=== PATIENT | female | born 1970 | race Hispanic/Latino ===

== ENCOUNTER 2017-10-02 14:27 | Inpatient (IN) | payer SELFPAY ==
[~2017-10-02] VITALS: Ht 154.9 cm; Wt 96.3 kg
[2017-10-02 15:23] LABS: BASOPHILS % (AUTO) 0.7 % (0.0-5.0); HEMATOCRIT 30.6 % (36-48); LYMPHOCYTES % (AUTO) 6.2 % (21.0-51.0); MEAN CORPUSCULAR HGB CONC 30.8 g/dL (32.0-36.0); MEAN CORPUSCULAR VOLUME 71.4 fL (79-99); MONOCYTES % (AUTO) 11.4 % (3.0-13.0); NEUTROPHILS % (AUTO) 81.7 % (40.0-77.0); NUCLEATED RED BLOOD CELLS 0.1 % (0.0-0.19); PLATELET COUNT (AUTO) 472 K/uL (130-400); RED BLOOD CELL COUNT(AUTO) 4.28 MIL/uL (4.00-5.50); RED CELL DISTRIBUTION WIDTH 17.1 % (11.0-15.5); WHITE BLOOD COUNT (AUTO) 17.3 K/uL (4.8-10.8)
[2017-10-02] MEDS ORDERED: ONDANSETRON HCL 4 MG/2 ML VIAL ONE (15:36)
[2017-10-02 15:50] LABS: ALANINE AMINOTRANSFERASE 20 U/L (12-78); ALBUMIN 2.4 g/dL (3.5-5.0); ASPARTATE AMINOTRANSFERASE 16 U/L (10-37); BILIRUBIN,TOTAL 0.4 mg/dL (0.2-1.0); CARBON DIOXIDE 27 mmol/L (21-32); CHLORIDE 92 mmol/L (101-111); CREATINE KINASE MB < 0.5 ng/mL (0.5-3.6); CREATINE KINASE, TOTAL 146 U/L (21-232); CREATININE 0.8 mg/dL (0.5-1.5); GLOMERULAR FILTR. RATE CALC 81 mL/min (>60); GLUCOSE,RANDOM 284 mg/dL (70-105); SODIUM SERUM 131 mmol/L (136-145); TOTAL PROTEIN, SERUM 8.7 g/dL (6.0-8.3); UREA NITROGEN, BLOOD 10 mg/dL (7-18)
[2017-10-02 15:52] LABS: POTASSIUM 2.6 mmol/L (3.5-5.1)
[2017-10-02] MEDS ORDERED: IPRATROPIUM/ALBUTEROL SULFATE 3 ML SOLUTION IH ONE (16:00)
[2017-10-02 16:02] LABS: INR 1.08 (0.85-1.15); PARTIAL THROMBOPLASTIN TIME 31.5 SEC (26.3-35.5); PROTHROMBIN TIME 11.3 SEC (9.6-11.6)
[2017-10-02] MEDS ORDERED: POTASSIUM BICARB/CIT AC 25 MEQ TABLET.EFF ONE ×2 (16:11→21:10)
[2017-10-02] MEDS ORDERED: CEFTRIAXONE SODIUM 1 GM ONE (16:47)
[2017-10-02] MEDS ORDERED: AZITHROMYCIN 500MG+NS 250ML 250 ML IV ONE (16:47)
[2017-10-02 16:53] LABS: APPEARANCE,URINE Turbid (CLEAR); BILIRUBIN,URINE Negative (NEGATIVE); COLOR,URINE Orange (YELLOW); GLUCOSE, URINE (UA) >=1000 mg/dL (NEGATIVE); KETONES,URINE >=160 mg/dL (NEGATIVE); LEUKOCYTE ESTERASE ,URINE Moderate (NEGATIVE); NITRATE,URINE Negative (NEGATIVE); OCCULT BLOOD,URINE Large (NEGATIVE); PROTEIN,URINE >=1000 (NEGATIVE)
[2017-10-02 16:55] LABS: HCG,QUAL RESULT NEGATIVE (NEGATIVE)
[2017-10-02 17:00] LABS: RBC,URINE 51-100 /HPF (0-1)
[2017-10-02 17:01] LABS: BACTERIA,URINE Rare /HPF (None Seen)
[2017-10-02] MEDS ORDERED: ACETAMINOPHEN 325 MG TAB ONE (18:14)
[2017-10-02] MEDS ORDERED: INSULIN HUMULIN R 100 UNIT/ML 3ML ONE (21:11)
[2017-10-02 21:30] VITALS: BP 163/95
[2017-10-02 23:00] VITALS: BP 178/99
[2017-10-02] MEDS: SODIUM CHLORIDE 0.9% 1000ML 1,000 ML IV SCH (23:10)
[2017-10-03] MEDS ORDERED: ACETAMINOPHEN 325 MG TAB ONE (01:30)
[2017-10-03] MEDS ORDERED: ONDANSETRON HCL 4 MG/2 ML VIAL IV PRN (02:30)
[2017-10-03] MEDS: CEFTRIAXONE 1GM/D5W 50ML 50 ML IV SCH (02:30)
[2017-10-03] MEDS: METHYLPREDNISOLONE SOD SUCC 125MG/2ML VIAL IV SCH (02:30)
[2017-10-03] MEDS ORDERED: POTASSIUM CHLORIDE 10% ELIXIR 20 MEQ/15 ML UDCUP PO PRN (02:30)
[2017-10-03] MEDS: AZITHROMYCIN 500MG+NS 250ML 250 ML IV SCH (02:30)
[2017-10-03] MEDS ORDERED: ACETAMINOPHEN-CODEINE 300/30MG TAB PO PRN (02:30)
[2017-10-03] MEDS ORDERED: HYDRALAZINE HCL 20 MG/ML VIAL ONE (02:43)
[2017-10-03 03:00] VITALS: BP 177/96
[2017-10-03] MEDS ORDERED: IPRATROPIUM/ALBUTEROL SULFATE 3 ML SOLUTION IH ONE (03:24)
[2017-10-03] MEDS ORDERED: METHYLPREDNISOLONE SOD SUCC 125MG/2ML VIAL ONE (03:25)
[2017-10-03] MEDS: INSULIN LISPRO 100 UNIT/ML 3ML SQ SCH ×4 (06:23→20:57)
[2017-10-03] MEDS: SODIUM CHLORIDE 0.9% 1000ML 1,000 ML IV SCH ×2 (06:26→15:11)
[2017-10-03] MEDS: IPRATROPIUM/ALBUTEROL SULFATE 3 ML SOLUTION IH SCH ×5 (06:32→22:29)
[2017-10-03 07:00] VITALS: BP 164/88
[2017-10-03] MEDS: PANTOPRAZOLE SODIUM 40 MG TABLET.DR PO SCH (10:12)
[2017-10-03] MEDS: BENZONATATE 100 MG CAPSULE PO SCH ×3 (10:12→20:44)
[2017-10-03] MEDS: LIDOCAINE HCL-MPF 1% 2ML VIAL IVP PRN ×3 (10:13→17:01)
[2017-10-03] MEDS: POTASSIUM CHLORIDE 20MEQ/100ML 100 ML IV PRN ×3 (10:13→17:00)
[2017-10-03 12:00] VITALS: BP 172/92
[2017-10-03] MEDS: HYDRALAZINE HCL 20 MG/ML VIAL IV PRN (12:11)
[2017-10-03 16:00] VITALS: BP 151/84
[2017-10-03 19:00] VITALS: BP 143/96
[2017-10-03] MEDS ORDERED: AMLO10TA2 PO (19:43)
[2017-10-03] MEDS ORDERED: PRAV20TA4 PO (19:43)
[2017-10-03] MEDS ORDERED: GLIM1TAB2 PO (19:43)
[2017-10-03] MEDS ORDERED: LOSA25TA21 PO (19:43)
[2017-10-03] MEDS ORDERED: METF-526 PO (19:43)
[2017-10-03] MEDS ORDERED: AEC81 PO (19:43)
[2017-10-03 23:00] VITALS: BP 159/90
[2017-10-04] MEDS ORDERED: CEFTRIAXONE SODIUM 1 GM ONE (01:20)
[2017-10-04] MEDS: AZITHROMYCIN 500MG+NS 250ML 250 ML IV SCH (01:34)
[2017-10-04] MEDS: CEFTRIAXONE 1GM/D5W 50ML 50 ML IV SCH (01:35)
[2017-10-04] MEDS: METHYLPREDNISOLONE SOD SUCC 125MG/2ML VIAL IV SCH (01:43)
[2017-10-04] MEDS: IPRATROPIUM/ALBUTEROL SULFATE 3 ML SOLUTION IH SCH ×6 (02:26→22:01)
[2017-10-04] MEDS: ACETAMINOPHEN 325 MG TAB PO PRN (02:33)
[2017-10-04 03:00] VITALS: BP 159/97
[2017-10-04] MEDS: SODIUM CHLORIDE 0.9% 1000ML 1,000 ML IV SCH (04:15)
[2017-10-04] MEDS: HYDRALAZINE HCL 20 MG/ML VIAL IV PRN ×2 (04:23→19:26)
[2017-10-04 06:17] LABS: BASOPHILS % (AUTO) 0.2 % (0.0-5.0); HEMATOCRIT 25.3 % (36-48); LYMPHOCYTES % (AUTO) 10.3 % (21.0-51.0); MEAN CORPUSCULAR HEMOGLOBIN 21.8 pg (27.0-33.0); MEAN CORPUSCULAR HGB CONC 30.3 g/dL (32.0-36.0); MEAN CORPUSCULAR VOLUME 71.9 fL (79-99); MONOCYTES % (AUTO) 6.9 % (3.0-13.0); NEUTROPHILS % (AUTO) 82.6 % (40.0-77.0); NUCLEATED RED BLOOD CELLS 0.1 % (0.0-0.19); PLATELET COUNT (AUTO) 500 K/uL (130-400); RED BLOOD CELL COUNT(AUTO) 3.52 MIL/uL (4.00-5.50); RED CELL DISTRIBUTION WIDTH 17.2 % (11.0-15.5); WHITE BLOOD COUNT (AUTO) 19.2 K/uL (4.8-10.8)
[2017-10-04] MEDS: INSULIN LISPRO 100 UNIT/ML 3ML SQ SCH ×4 (06:18→21:05)
[2017-10-04 06:37] LABS: CREATININE 0.6 mg/dL (0.5-1.5); POTASSIUM 3.1 mmol/L (3.5-5.1)
[2017-10-04] MEDS: POTASSIUM CHLORIDE 20MEQ/100ML 100 ML IV PRN (07:02)
[2017-10-04] MEDS: LIDOCAINE HCL-MPF 1% 2ML VIAL IVP PRN (07:02)
[2017-10-04] MEDS: POTASSIUM CHLORIDE 20 MEQ ERTAB PO PRN ×3 (07:03→21:10)
[2017-10-04 08:00] VITALS: BP 138/76
[2017-10-04] MEDS: BENZONATATE 100 MG CAPSULE PO SCH ×3 (09:13→21:11)
[2017-10-04] MEDS: PANTOPRAZOLE SODIUM 40 MG TABLET.DR PO SCH (09:13)
[2017-10-04 11:00] VITALS: BP 156/89
[2017-10-04 16:00] VITALS: BP 161/83
[2017-10-04] MEDS: METHYLPREDNISOLONE SOD SUCC 40MG/ML 1ML IVP SCH (17:16)
[2017-10-04 20:32] LABS: CREATINE KINASE MB 1.5 ng/mL (0.5-3.6); CREATINE KINASE, TOTAL 175 U/L (21-232); MYOGLOBIN 39 ng/mL (10-92); TROPONIN I < 0.04 ng/mL (0.00-0.06)
[2017-10-04] MEDS ORDERED: LORAZEPAM 2 MG/ML 1 ML VIAL IVP PRN (20:45)
[2017-10-04] MEDS: METFORMIN HCL 500 MG TABLET PO SCH (21:10)
[2017-10-04] MEDS: ATORVASTATIN CALCIUM 10 MG TABLET PO SCH (21:10)
[2017-10-04] MEDS: GLIMEPIRIDE 2 MG TABLET PO SCH (21:11)
[2017-10-04] MEDS: LOSARTAN 50 MG TABLET PO SCH (21:12)
[2017-10-04 23:00] VITALS: BP 165/100
[2017-10-05] MEDS: IPRATROPIUM/ALBUTEROL SULFATE 3 ML SOLUTION IH SCH ×6 (01:41→22:01)
[2017-10-05] MEDS ORDERED: CEFTRIAXONE SODIUM 1 GM ONE ×2 (02:16→23:27)
[2017-10-05] MEDS: HYDRALAZINE HCL 20 MG/ML VIAL IV PRN ×2 (02:19→23:10)
[2017-10-05] MEDS: METHYLPREDNISOLONE SOD SUCC 40MG/ML 1ML IVP SCH ×3 (02:21→17:31)
[2017-10-05] MEDS: CEFTRIAXONE 1GM/D5W 50ML 50 ML IV SCH (02:22)
[2017-10-05] MEDS: AZITHROMYCIN 500MG+NS 250ML 250 ML IV SCH (02:22)
[2017-10-05 02:30] LABS: CREATINE KINASE MB 1.3 ng/mL (0.5-3.6); CREATINE KINASE, TOTAL 141 U/L (21-232); MYOGLOBIN 52 ng/mL (10-92); TROPONIN I < 0.04 ng/mL (0.00-0.06)
[2017-10-05 03:00] VITALS: BP 139/78
[2017-10-05] MEDS: ACETAMINOPHEN 325 MG TAB PO PRN (05:00)
[2017-10-05] MEDS: INSULIN LISPRO 100 UNIT/ML 3ML SQ SCH ×4 (07:01→20:39)
[2017-10-05 07:50] LABS: CREATINE KINASE, TOTAL 118 U/L (21-232); MYOGLOBIN 33 ng/mL (10-92); TROPONIN I < 0.04 ng/mL (0.00-0.06)
[2017-10-05 08:00] VITALS: BP 151/96
[2017-10-05] MEDS: PANTOPRAZOLE SODIUM 40 MG TABLET.DR PO SCH (10:20)
[2017-10-05] MEDS: BENZONATATE 100 MG CAPSULE PO SCH ×3 (10:20→20:08)
[2017-10-05] MEDS: GLIMEPIRIDE 2 MG TABLET PO SCH ×2 (10:20→20:08)
[2017-10-05] MEDS: LOSARTAN 50 MG TABLET PO SCH ×2 (10:20→20:09)
[2017-10-05] MEDS: METFORMIN HCL 500 MG TABLET PO SCH ×2 (10:20→20:08)
[2017-10-05] MEDS: ASPIRIN 81 MG EC TAB PO SCH (10:20)
[2017-10-05] MEDS: AMLODIPINE BESYLATE 5 MG TAB PO SCH (10:21)
[2017-10-05 11:00] VITALS: BP 144/95
[2017-10-05 16:00] VITALS: BP 146/79
[2017-10-05 19:00] VITALS: BP 160/95
[2017-10-05] MEDS: ATORVASTATIN CALCIUM 10 MG TABLET PO SCH (20:08)
[2017-10-05 23:00] VITALS: BP 149/95
[2017-10-06] MEDS: METHYLPREDNISOLONE SOD SUCC 40MG/ML 1ML IVP SCH ×3 (00:07→18:16)
[2017-10-06] MEDS: IPRATROPIUM/ALBUTEROL SULFATE 3 ML SOLUTION IH SCH ×6 (01:32→22:17)
[2017-10-06] MEDS: AZITHROMYCIN 500MG+NS 250ML 250 ML IV SCH (02:30)
[2017-10-06] MEDS: CEFTRIAXONE 1GM/D5W 50ML 50 ML IV SCH (02:30)
[2017-10-06 03:00] VITALS: BP 138/92
[2017-10-06] MEDS: INSULIN LISPRO 100 UNIT/ML 3ML SQ SCH ×4 (07:29→20:14)
[2017-10-06 07:30] VITALS: BP 154/90
[2017-10-06] MEDS: LOSARTAN 50 MG TABLET PO SCH ×2 (08:48→20:06)
[2017-10-06] MEDS: BENZONATATE 100 MG CAPSULE PO SCH ×3 (08:48→20:07)
[2017-10-06] MEDS: METFORMIN HCL 500 MG TABLET PO SCH ×2 (08:48→20:06)
[2017-10-06] MEDS: ASPIRIN 81 MG EC TAB PO SCH (08:48)
[2017-10-06] MEDS: PANTOPRAZOLE SODIUM 40 MG TABLET.DR PO SCH (08:48)
[2017-10-06] MEDS: AMLODIPINE BESYLATE 5 MG TAB PO SCH (08:48)
[2017-10-06] MEDS: GLIMEPIRIDE 2 MG TABLET PO SCH ×2 (08:48→20:06)
[2017-10-06 11:00] VITALS: BP 146/90
[2017-10-06 12:16] LABS: HEMATOCRIT 26.5 % (36-48); MEAN CORPUSCULAR HEMOGLOBIN 22.1 pg (27.0-33.0); MEAN CORPUSCULAR HGB CONC 30.8 g/dL (32.0-36.0); MEAN CORPUSCULAR VOLUME 71.7 fL (79-99); PLATELET COUNT (AUTO) 618 K/uL (130-400); RED BLOOD CELL COUNT(AUTO) 3.69 MIL/uL (4.00-5.50); RED CELL DISTRIBUTION WIDTH 17.3 % (11.0-15.5); WHITE BLOOD COUNT (AUTO) 18.1 K/uL (4.8-10.8)
[2017-10-06 12:58] LABS: BAND NEUTROPHILS % (MANUAL) 1 % (0-2); LYMPHOCYTES % (MANUAL) 16 % (22-44); MONOCYTES % (MANUAL) 7 % (2-9); SEGMENTED NEUTROPHILS % 76 % (40-70)
[2017-10-06 13:02] LABS: MAN.DIFF COMMENT-IMPRESSION MANUAL DIFFERENTIAL; PLATELET MORPHOLOGY COMMENT INCREASED
[2017-10-06 16:00] VITALS: BP 144/87
[2017-10-06 20:00] VITALS: BP 152/87
[2017-10-06] MEDS: ATORVASTATIN CALCIUM 10 MG TABLET PO SCH (20:06)
[2017-10-07] VITALS: BP 157/95
[2017-10-07] MEDS ORDERED: CEFTRIAXONE SODIUM 1 GM ONE (00:54)
[2017-10-07] MEDS: METHYLPREDNISOLONE SOD SUCC 40MG/ML 1ML IVP SCH ×2 (01:30→11:14)
[2017-10-07] MEDS: HYDRALAZINE HCL 20 MG/ML VIAL IV PRN (01:31)
[2017-10-07] MEDS: AZITHROMYCIN 500MG+NS 250ML 250 ML IV SCH (01:32)
[2017-10-07] MEDS: CEFTRIAXONE 1GM/D5W 50ML 50 ML IV SCH (01:34)
[2017-10-07] MEDS: IPRATROPIUM/ALBUTEROL SULFATE 3 ML SOLUTION IH SCH ×3 (01:42→09:50)
[2017-10-07 04:00] VITALS: BP 147/85
[2017-10-07] MEDS: INSULIN LISPRO 100 UNIT/ML 3ML SQ SCH ×2 (06:54→12:20)
[2017-10-07 08:00] VITALS: BP 152/93
[2017-10-07] MEDS: LOSARTAN 50 MG TABLET PO SCH (09:00)
[2017-10-07] MEDS ORDERED: PRED20TA3 PO (10:34)
[2017-10-07] MEDS ORDERED: ALBU8.5H8 IH (10:34)
[2017-10-07] MEDS ORDERED: CEFD300C3 PO (10:34)
[2017-10-07] MEDS: GLIMEPIRIDE 2 MG TABLET PO SCH (11:13)
[2017-10-07] MEDS: PANTOPRAZOLE SODIUM 40 MG TABLET.DR PO SCH (11:13)
[2017-10-07] MEDS: AMLODIPINE BESYLATE 5 MG TAB PO SCH (11:14)
[2017-10-07] MEDS: ASPIRIN 81 MG EC TAB PO SCH (11:14)
[2017-10-07] MEDS: BENZONATATE 100 MG CAPSULE PO SCH (11:14)
[2017-10-07] MEDS: METFORMIN HCL 500 MG TABLET PO SCH (11:14)
[2017-10-07 12:00] VITALS: BP 150/101
[2017-10-07] MEDS ORDERED: CEFTRIAXONE SODIUM 1 GM IVP SCH (21:00)
== END 2017-10-07 13:30 | disposition home or self-care (01) | DRG 202 ==
LOC: EDH 14:27 → EDHIP 14:28 → OBSVTOIN 14:28 → 3CH 20:28
PROVIDERS: ADMIT Family Medicine; ATTEND Family Medicine
DX: J20.9 Acute bronchitis, unspecified (principal); N39.0 Urinary tract infection, site not specified; E11.65 Type 2 diabetes mellitus with hyperglycemia; E87.8 Other disorders of electrolyte and fluid balance, not elsewhere classified; E87.1 Hypo-osmolality and hyponatremia; Z68.41 Body mass index [BMI] 40.0-44.9, adult; E66.01 Morbid (severe) obesity due to excess calories; E86.0 Dehydration; E87.6 Hypokalemia; I10 Essential (primary) hypertension; D72.829 Elevated white blood cell count, unspecified; E78.5 Hyperlipidemia, unspecified; Z98.891 History of uterine scar from previous surgery; Z28.21 Immunization not carried out because of patient refusal
CPT/HCPCS: 36415; 71045; 80048; 80053; 81001; 81025; 82550; 82553; 82947; 82948; 83605; 83874; 84132; 84484; 84703; 85025; 85610; 85730; 87040; 87088; 87186; 87804; 87880; 93005; 94640; 94664; J0360; J0456; J0696; J1815; J2060; J2405; J2920; J2930; J3480; J3490; J7030

== ENCOUNTER 2019-04-01 23:34 | Emergency (ER) | payer OTHER ==
[~2019-04-01 23:34] MED LIST: AEC81 PO; ALBU8.5H8 IH; AMLO10TA7 PO; CEFD300C3 PO; GLIM1TAB2 PO; LOSA25TA41 PO; METF-526 PO; PRAV20TA4 PO; PRED20TA3 PO
[2019-04-02] MEDS ORDERED: DiphenhydrAMINE HCL 50 MG/ML VIAL ONE (00:09)
[2019-04-02] MEDS ORDERED: DEXAMETHASONE SOD PHOSPHATE 10MG/ML 1ML VIAL ONE (00:09)
[2019-04-02] MEDS ORDERED: PANTOPRAZOLE 40 MG/VIAL IVP ONE (00:32)
[2019-04-02 00:45] LABS: BASOPHILS % (AUTO) 1.9 % (0.0-5.0); EOSINOPHILS % (AUTO) 0.8 % (0.0-8.0); HEMATOCRIT 36.4 % (36-48); LYMPHOCYTES % (AUTO) 20.6 % (21.0-51.0); MEAN CORPUSCULAR HEMOGLOBIN 26.5 pg (27.0-33.0); MEAN CORPUSCULAR HGB CONC 31.7 g/dL (32.0-36.0); MEAN CORPUSCULAR VOLUME 83.7 fL (79-99); NEUTROPHILS % (AUTO) 66.7 % (40.0-77.0); PLATELET COUNT (AUTO) 358 K/uL (130-400); RED BLOOD CELL COUNT(AUTO) 4.35 MIL/uL (4.00-5.50); RED CELL DISTRIBUTION WIDTH 18.5 % (11.0-15.5); WHITE BLOOD COUNT (AUTO) 6.3 K/uL (4.8-10.8)
[2019-04-02 00:54] LABS: CREATININE 0.7 mg/dL (0.5-1.5); POTASSIUM 3.8 mmol/L (3.5-5.1)
[2019-04-02 00:58] LABS: ALBUMIN 3.3 g/dL (3.5-5.0); BILIRUBIN,TOTAL 0.2 mg/dL (0.2-1.0)
== END 2019-04-02 02:13 | disposition home or self-care (01) ==
LOC: EDH 23:34
DX: T78.3XXA Angioneurotic edema, initial encounter (principal); I10 Essential (primary) hypertension; E78.5 Hyperlipidemia, unspecified; E11.9 Type 2 diabetes mellitus without complications; Z98.890 Other specified postprocedural states
CPT/HCPCS: 36415; 80053; 85025; 96374; 96375; 99284; C9113; J1100; J1200

== ENCOUNTER 2019-04-05 17:14 | Emergency (ER) | payer OTHER ==
[2019-04-05] MEDS ORDERED: ONDANSETRON ODT 4 MG TAB ONE (17:41)
[2019-04-05 18:01] LABS: APPEARANCE,URINE CLOUDY (CLEAR); BILIRUBIN,URINE NEGATIVE (NEGATIVE); COLOR,URINE YELLOW (YELLOW); GLUCOSE, URINE (UA) NEGATIVE (NEGATIVE); KETONES,URINE NEGATIVE (NEGATIVE); LEUKOCYTE ESTERASE ,URINE TRACE (NEGATIVE); NITRATE,URINE NEGATIVE (NEGATIVE); OCCULT BLOOD,URINE NEGATIVE (NEGATIVE); PROTEIN,URINE 100 mg/dL (NEGATIVE); UROBILINOGEN,URINE 0.2 mg/dL (0.2-1.0)
[2019-04-05 18:04] LABS: HCG,QUAL RESULT NEGATIVE (NEGATIVE)
[2019-04-05 18:16] LABS: BACTERIA,URINE Few /HPF (None Seen); RBC,URINE 0-1 /HPF (0-1); SQUAMOUS EPITHELIAL CELL,UR Few /HPF (0-2)
[2019-04-05 18:17] LABS: AMORPHOUS SEDIMENT,UR Moderate /LPF (None Seen)
== END 2019-04-05 19:02 | disposition home or self-care (01) ==
LOC: EDH 17:14
DX: N30.00 Acute cystitis without hematuria (principal); E11.9 Type 2 diabetes mellitus without complications; I10 Essential (primary) hypertension; E78.5 Hyperlipidemia, unspecified; Z98.890 Other specified postprocedural states; Z88.8 Allergy status to other drugs, medicaments and biological substances
CPT/HCPCS: 81001; 81025; 82948; 87088; 87804

== ENCOUNTER 2019-08-31 12:40 | Emergency (ER) | payer OTHER ==
[~2019-08-31 12:40] MED LIST changes: -GLIM1TAB2 PO; +GLIM1TAB3 PO
[2019-08-31] MEDS ORDERED: GUAIFENESIN SUGAR-FREE 100 MG/5 ML UDCUP ONE (12:56)
[2019-08-31] MEDS ORDERED: ACETAMINOPHEN EXTRA STRENGTH 500 MG TABLET ONE (12:56)
[2019-08-31 13:28] LABS: APPEARANCE,URINE Clear (CLEAR); BILIRUBIN,URINE Negative (NEGATIVE); COLOR,URINE Yellow (YELLOW); GLUCOSE, URINE (UA) TRACE mg/dL (NEGATIVE); KETONES,URINE Negative (NEGATIVE); LEUKOCYTE ESTERASE ,URINE Negative (NEGATIVE); NITRATE,URINE Negative (NEGATIVE); OCCULT BLOOD,URINE Negative (NEGATIVE); PH,URINE 6.5 (5.0-8.0); PROTEIN,URINE POS 2+ mg/dL (NEGATIVE)
[2019-08-31 13:34] LABS: BACTERIA,URINE Rare /HPF (None Seen); RBC,URINE 0-1 /HPF (0-1); SQUAMOUS EPITHELIAL CELL,UR Rare /HPF (0-2); WBC,URINE 0-1 /HPF (0-1)
== END 2019-08-31 14:15 | disposition home or self-care (01) ==
LOC: EDH 12:40
DX: J06.9 Acute upper respiratory infection, unspecified (principal); E11.9 Type 2 diabetes mellitus without complications; E78.5 Hyperlipidemia, unspecified; I10 Essential (primary) hypertension; Z98.890 Other specified postprocedural states; Z88.2 Allergy status to sulfonamides
CPT/HCPCS: 71046; 81001; 87804

== ENCOUNTER 2021-03-01 07:15 | Emergency (ER) | payer OTHER ==
[~2021-03-01] VITALS: Ht 154.9 cm; Wt 92.1 kg
[~2021-03-01 07:15] MED LIST changes: +AMLO-258 PO; -AMLO10TA7 PO; +GLIM1TAB18 PO; -GLIM1TAB3 PO
[2021-03-01 08:37] LABS: APPEARANCE,URINE CLOUDY (CLEAR); BILIRUBIN,URINE SMALL (NEGATIVE); COLOR,URINE RED (YELLOW); GLUCOSE, URINE (UA) 100 mg/dL (NEGATIVE); KETONES,URINE NEGATIVE (NEGATIVE); LEUKOCYTE ESTERASE ,URINE TRACE (NEGATIVE); NITRATE,URINE NEGATIVE (NEGATIVE); OCCULT BLOOD,URINE LARGE (NEGATIVE); PH,URINE 5.5 (5.0-8.0); PROTEIN,URINE 100 mg/dL (NEGATIVE); UROBILINOGEN,URINE 0.2 mg/dL (0.2-1.0)
[2021-03-01 08:47] LABS: BACTERIA,URINE Few /HPF (None Seen); RBC,URINE Full Field /HPF (0-1)
[2021-03-01 09:08] VITALS: BP 164/66
== END 2021-03-01 09:59 | disposition home or self-care (01) ==
LOC: EDH 07:15
DX: N92.0 Excessive and frequent menstruation with regular cycle (principal); E11.9 Type 2 diabetes mellitus without complications; E66.9 Obesity, unspecified; Z79.82 Long term (current) use of aspirin; Z79.84 Long term (current) use of oral hypoglycemic drugs; Z79.899 Other long term (current) drug therapy; Z88.8 Allergy status to other drugs, medicaments and biological substances
CPT/HCPCS: 81001

== ENCOUNTER 2022-02-04 10:05 | Emergency (ER) | payer OTHER ==
[~2022-02-04] VITALS: Ht 154.9 cm; Wt 92.5 kg
[2022-02-04 10:36] LABS: APPEARANCE,URINE CLEAR (CLEAR); BILIRUBIN,URINE NEGATIVE (NEGATIVE); COLOR,URINE YELLOW (YELLOW); GLUCOSE, URINE (UA) 500 mg/dL (NEGATIVE); KETONES,URINE NEGATIVE (NEGATIVE); LEUKOCYTE ESTERASE ,URINE NEGATIVE (NEGATIVE); NITRATE,URINE NEGATIVE (NEGATIVE); OCCULT BLOOD,URINE TRACE-INTACT (NEGATIVE); PH,URINE 5.5 (5.0-8.0); PROTEIN,URINE 100 mg/dL (NEGATIVE); UROBILINOGEN,URINE 0.2 mg/dL (0.2-1.0)
[2022-02-04 10:42] LABS: BASOPHILS % (AUTO) 1.4 % (0.0-5.0); HEMATOCRIT 40.8 % (36-48); LYMPHOCYTES % (AUTO) 32.8 % (21.0-51.0); MEAN CORPUSCULAR HEMOGLOBIN 28.4 pg (27.0-33.0); MEAN CORPUSCULAR HGB CONC 31.4 g/dL (32.0-36.0); MEAN CORPUSCULAR VOLUME 90.7 fL (79-99); MONOCYTES % (AUTO) 6.9 % (3.0-13.0); NEUTROPHILS % (AUTO) 54.7 % (40.0-77.0); PLATELET COUNT (AUTO) 302 K/uL (130-400); WHITE BLOOD COUNT (AUTO) 5.8 K/uL (4.8-10.8)
[2022-02-04 10:43] LABS: BACTERIA,URINE Rare /HPF (None Seen); MUCUS,URINE Few LPF (None Seen); SQUAMOUS EPITHELIAL CELL,UR Moderate /HPF (0-2)
[2022-02-04 10:56] LABS: ALBUMIN 3.6 g/dL (3.5-5.0); BILIRUBIN,TOTAL 0.2 mg/dL (0.2-1.0); CREATININE 0.7 mg/dL (0.5-1.5); POTASSIUM 3.8 mmol/L (3.5-5.1); TOTAL PROTEIN, SERUM 8.4 g/dL (6.0-8.3)
[2022-02-04] MEDS ORDERED: IBUP-2070 PO (11:51)
[2022-02-04] MEDS ORDERED: CEPH500B PO (11:51)
[2022-02-04] MEDS ORDERED: CEFTRIAXONE 1G VIAL IVP ONE (12:00)
[2022-02-04] MEDS ORDERED: LIDOCAINE HCL-MPF 1% 2ML VIAL ONE (12:09)
[2022-02-04] MEDS ORDERED: CEPHALEXIN 500 MG CAPSULE ONE (12:10)
[2022-02-04] MEDS ORDERED: IBUPROFEN 600 MG TABLET ONE (12:16)
[2022-02-04 12:20] VITALS: BP 139/76
== END 2022-02-04 12:21 | disposition home or self-care (01) ==
LOC: EDH 10:05
DX: N39.0 Urinary tract infection, site not specified (principal); R31.9 Hematuria, unspecified; E11.9 Type 2 diabetes mellitus without complications; E78.00 Pure hypercholesterolemia, unspecified; I10 Essential (primary) hypertension; Z88.8 Allergy status to other drugs, medicaments and biological substances; Z79.899 Other long term (current) drug therapy; Z79.84 Long term (current) use of oral hypoglycemic drugs; Z79.82 Long term (current) use of aspirin; Z98.890 Other specified postprocedural states
CPT/HCPCS: 36415; 80053; 81001; 85025; 87088; 96372; 99283; J0696; J3490

== ENCOUNTER 2022-09-18 17:04 | Emergency (ER) | payer OTHER ==
[~2022-09-18] VITALS: Ht 154.9 cm; Wt 86.2 kg
[~2022-09-18 17:04] MED LIST changes: +CEPH500B PO; +IBUP-2070 PO
[2022-09-18 19:38] LABS: BASOPHILS % (AUTO) 1.2 % (0.0-5.0); EOSINOPHILS % (AUTO) 2.1 % (0.0-8.0); HEMATOCRIT 40.1 % (36-48); LYMPHOCYTES % (AUTO) 25.2 % (21.0-51.0); MEAN CORPUSCULAR HEMOGLOBIN 28.3 pg (27.0-33.0); MEAN CORPUSCULAR HGB CONC 32.2 g/dL (32.0-36.0); MEAN CORPUSCULAR VOLUME 87.9 fL (79-99); MONOCYTES % (AUTO) 10.4 % (3.0-13.0); NEUTROPHILS % (AUTO) 60.8 % (40.0-77.0); PLATELET COUNT (AUTO) 275 K/uL (130-400); RED BLOOD CELL COUNT(AUTO) 4.56 MIL/uL (4.00-5.50); RED CELL DISTRIBUTION WIDTH 13.2 % (11.0-15.5); WHITE BLOOD COUNT (AUTO) 6.7 K/uL (4.8-10.8)
[2022-09-18 19:48] LABS: CREATININE 0.6 mg/dL (0.5-1.5); POTASSIUM 3.3 mmol/L (3.5-5.1)
[2022-09-18 19:57] LABS: ALBUMIN 3.2 g/dL (3.5-5.0)
[2022-09-18 20:31] VITALS: BP 168/89
[2022-09-18] MEDS ORDERED: GUAIFENESIN-CODEINE 5 ML SYRUP PO ONE (21:30)
[2022-09-18] MEDS ORDERED: POTASSIUM BICARB/CIT AC 25 MEQ TABLET.EFF PO ONE (22:00)
[2022-09-18] MEDS ORDERED: BENZ-39 PO (22:03)
[2022-09-18] MEDS ORDERED: AZIT250T PO (22:03)
== END 2022-09-18 22:26 | disposition home or self-care (01) ==
LOC: EDH 17:04
DX: J45.909 Unspecified asthma, uncomplicated (principal); E87.5 Hyperkalemia; E11.9 Type 2 diabetes mellitus without complications; I10 Essential (primary) hypertension; E78.00 Pure hypercholesterolemia, unspecified; Z20.822 Contact with and (suspected) exposure to COVID-19; Z79.899 Other long term (current) drug therapy; Z79.82 Long term (current) use of aspirin; Z79.84 Long term (current) use of oral hypoglycemic drugs; Z98.890 Other specified postprocedural states
CPT/HCPCS: 99285; 71045; 87635; 84484; 80053; 85025; 87880; 87804 ×2; 36415; 93005; C9803

== ENCOUNTER 2022-12-29 22:23 | Emergency (ER) | payer OTHER ==
[~2022-12-29] VITALS: Ht 154.9 cm; Wt 89.8 kg
[~2022-12-29 22:23] MED LIST changes: +AZIT250T PO; +BENZ-39 PO
[2022-12-29 22:24] VITALS: BP 145/88
[2022-12-29] MEDS ORDERED: ACETAMINOPHEN 500 MG TABLET PO ONE (23:30)
[2022-12-30] MEDS ORDERED: AMOX500C2 PO (00:16)
[2022-12-30] MEDS ORDERED: LIDOCAINE HCL 1% 20 ML VIAL ONE (00:24)
[2022-12-30] MEDS ORDERED: ONDANSETRON ODT 4MG TAB SL ONE (00:30)
[2022-12-30] MEDS ORDERED: LIDOCAINE HCL 1% 20 ML VIAL INJ SCH (00:30)
[2022-12-30] MEDS ORDERED: CEFTRIAXONE 1G VIAL IVP ONE (00:30)
== END 2022-12-30 00:54 | disposition home or self-care (01) ==
LOC: EDH 22:23
DX: J03.90 Acute tonsillitis, unspecified (principal); E11.9 Type 2 diabetes mellitus without complications; E78.00 Pure hypercholesterolemia, unspecified; I10 Essential (primary) hypertension; Z79.1 Long term (current) use of non-steroidal anti-inflammatories (NSAID); Z79.52 Long term (current) use of systemic steroids; Z79.82 Long term (current) use of aspirin; Z79.84 Long term (current) use of oral hypoglycemic drugs; Z88.8 Allergy status to other drugs, medicaments and biological substances; Z20.822 Contact with and (suspected) exposure to COVID-19
CPT/HCPCS: 99283; 87426; 87880; 87804 ×2; 96372; J0696

== ENCOUNTER 2025-07-05 19:08 | Emergency (ER) | payer BC ==
[~2025-07-05] VITALS: Ht 154.9 cm; Wt 90.7 kg
[~2025-07-05 19:08] MED LIST changes: -ALBU8.5H8 IH; -AZIT250T PO; -BENZ-39 PO; -CEFD300C3 PO; -CEPH500B PO; -GLIM1TAB18 PO; +GLIM1TAB56 PO; -IBUP-2070 PO; -PRAV20TA4 PO; +PRAV20TA59 PO
--- NOTE | 2025-07-05 19:09 | NUR ---
UA CUP PROVIDED
--- NOTE | 2025-07-05 19:28 | ERN ---
ED Note History of Present Illness Stated Complaint: BLOOD IN URINE, REDNESS TO NOSE Chief Complaint: Multiple Complaints Time Seen by MD: 19:11 Time Seen by Midlevel: 19:14 Dictation: 54-year-old female coming in for evaluation of dysuria and hematuria. Patient states she has frequent UTIs, but states that today she even has pain when she sits down. Denies any vaginal discharge. Patient denies any fever, back pain, nausea or vomiting. Patient also states she has pain to the her nose area, but states was seen by the PCP for this complaint today and was placed on clindamycin 300 every8 hours. Allergies: Coded Allergies: No Known Drug Allergies (Unverified Allergy, Unknown, 10/02/17) lisinopril (Unverified Allergy, Unknown, 04/05/19) Home Meds Active Scripts Prednisone (Prednisone) 20 Mg Tablet, 20 MG PO DAILY for 3 Days, TAB Prov:CYRIL MC MD 10/07/17 Reported Medications Aspirin (ASPIRIN 81 MG ECTAB) 81 Mg Ectab, 81 MG PO DAILY, TAB.EC 10/03/17 Pravastatin Sodium (Pravastatin Sodium) 20 Mg Tablet, 20 MG PO HS, TAB 10/03/17 Amlodipine Besylate (Amlodipine Besylate) 10 Mg Tablet, 10 MG PO DAILY, TAB 10/03/17 Losartan Potassium (Losartan Potassium) 25 Mg Tablet, 25 MG PO BID, TAB 10/03/17 Glimepiride (Glimepiride) 1 Mg Tablet, 2 MG PO BID, TAB 10/03/17 Metformin HCl (Metformin HCl ER) 500 Mg Tab.er.24, 500 MG PO BID 10/03/17 Past Medical History Past Medical History: Diabetes-Type II, Hypertension Surgical History: Other, Surgical History Other: HERNIA Social History: Negative, Lives with family History: Not Applicable : 2 Para: 2 Review of System Dictation Constitutional: Negative for fever,chills, and weight loss Eyes: Negative for injury, pain,redness, and discharge ENT: Negative for injury,pain or swelling Cardiovascular: Negative for chest pain, palpitations, and edema Respiratory: Negative for shortness of breath, cough, and wheezing, Abdomen/GI: Negative for abdominal pain, nausea, vomiting, diarrhea, and constipation Back: Negative for injury and pain : Complaining of dysuria MS/Extremity: Negative for injury and deformity Skin: Negative for rash, and discoloration Neuro: Negative for headache, weakness, numbness, tingling, and seizure Psych: Negative for suicide ideation, homicidal ideation, and hallucinations Review of Systems: was completed Initial Vital Sign VS Vital Signs Date Time Temp Pulse Resp B/P (MAP) Pulse Ox O2 Delivery O2 Flow Rate FiO2 07/05/25 19:09 99.0 92 20 168/100 99 Room Air Physical Exam Dictation General: awake, alert, NAD Head/Face: Normocephalic, atraumatic Eyes: PERRL, EOMI, vision at baseline ENT: oral cavity clear, TMs clear, no signs of infection Neck: Trachea midline, supple, no nuchal rigidity Cardiovascular: RRR, normal S1/S2, No MRGs, no JVD Respiratory: CTAB, no respiratory distress, No rales or wheezes Abdomen: Soft, non-tender, non-distended, normal bowel sounds, no guarding or rebound. Complaint no CVA tenderness Skin: Warm, dry, normal turgor, no rash MS/Extremity: Pulses equal, no cyanosis, neurovascular intact, FROM Neuro: COAx4, GCS 15, strength 5/5, CN 2-12 intact, normal cerebellar exam, normal gait, Psych: Normal behavior, mood, and affect normal Results (Laboratory/Radiology) Laboratory/Radiology Laboratory Tests Test 07/05/25 19:34 White Blood Count 3.9 K/uL (4.8-10.8) L Red Blood Count 4.49 MIL/uL (4.00-5.50) Hemoglobin 13.2 g/dL (12.0-16.0) Hematocrit 41.6 % (36-48) Mean Corpuscular Volume 92.7 fL (79-99) Mean Corpuscular Hemoglobin 29.4 pg (27.0-33.0) Mean Corpuscular Hemoglobin Concent 31.7 g/dL (32.0-36.0) L Red Cell Distribution Width 13.4 % (11.0-15.5) Platelet Count 257 K/uL (130-400) Mean Platelet Volume 11.2 fL (7.5-10.5) H Immature Granulocyte % (Auto) 0.3 % (0-1) Neutrophils (%) (Auto) 47.4 % (40.0-77.0) Lymphocytes (%) (Auto) 37.1 % (21.0-51.0) Monocytes (%) (Auto) 12.9 % (3.0-13.0) Eosinophils (%) (Auto) 1.0 % (0.0-8.0) Basophils (%) (Auto) 1.3 % (0.0-5.0) Neutrophils # (Auto) 1.8 K/uL (1.8-7.7) Lymphocytes # (Auto) 1.4 K/uL (1.0-4.8) Monocytes # (Auto) 0.5 K/uL (0.1-1.0) Eosinophils # (Auto) 0.04 K/uL (0.00-0.70) Basophils # (Auto) 0.05 K/uL (0.00-0.20) Absolute Immature Granulocyte (auto 0.01 K/uL (0-1) Nucleated Red Blood Cells 0.0 % (0.0-0.19) Urine Color YELLOW (YELLOW) Urine Appearance CLEAR (CLEAR) Urine pH 6.0 (5.0-8.0) Urine Specific Hubbard 1.037 (1.001-1.031) Urine Protein >=300 mg/dL (NEGATIVE) H Urine Glucose (UA) 250 mg/dL (NEGATIVE) H Urine Ketones 5 mg/dL (NEGATIVE) H Urine Occult Blood SMALL (NEGATIVE) H Urine Nitrate NEGATIVE (NEGATIVE) Urine Bilirubin SMALL mg/dL (NEGATIVE) H Urine Urobilinogen 1.0 mg/dL (0.2-1.0) Urine Leukocyte Esterase NEGATIVE Pilo/uL Urine RBC 2-5 /HPF (0-1) H Urine WBC 11-25 /HPF (0-1) H Urine Squamous Epithelial Cells Rare /HPF (0-2) Urine Bacteria Rare /HPF (None Seen) Sodium Level 139 mmol/L (136-145) Potassium Level 3.4 mmol/L (3.5-5.1) L Chloride Level 102 mmol/L (101-111) Carbon Dioxide Level 24 mmol/L (21-32) Blood Urea Nitrogen 18 mg/dL (7-18) Creatinine 0.8 mg/dL (0.5-1.0) Glomerular Filtration Rate Calc 87 mL/min (>90) Random Glucose 241 mg/dL (70-105) H Total Calcium 9.0 mg/dL (8.5-10.1) Labs Reviewed?: Yes ED Course ED Course Orders Procedure Category Date Status Time Cbc With Differential LAB 07/05/25 Complete 19:24 Basic Metabolic Panel LAB 07/05/25 Complete 19:24 Urinalysis Profile LAB 07/05/25 Complete 19:24 0.9%Nacl 1000ml (Ns PHA 07/05/25 In Process 1000ml) 19:29 Ketorolac PHA 07/05/25 In Process Tromethamine 15mg/Ml 19:30 Culture Urine ANTWON 07/05/25 In Process 20:02 Current Medications Medications (Trade) Dose Ordered Sig/Staci Route PRN Reason Start Time Stop Time Status Last Admin Dose Admin Ketorolac Tromethamine (toRADol) 15 mg ONCE IV 07/05/25 19:30 07/05/25 23:30 Sodium Chloride 1,000 ml @ 1,000 mls/hr Q1H IV 07/05/25 19:29 08/04/25 19:28 Vital Signs Date Time Temp Pulse Resp B/P (MAP) Pulse Ox O2 Delivery O2 Flow Rate FiO2 07/05/25 19:09 99.0 92 20 168/100 99 Room Air Medical Decision Making MDM MDM: 54-year-old female coming in for evaluation of dysuria and hematuria. Patient states she has frequent UTIs, but states that today she even has pain when she sits down. Denies any vaginal discharge. Patient denies any fever, back pain, nausea or vomiting. Patient also states she has pain to the her nose area, but states was seen by the PCP for this complaint today and was placed on clindamycin 300 every8 hours. CBC shows leukocytopenia, no anemia, no thrombocytopenia. Chemistry shows mild hypokalemia at 3.4. Normal kidney function. UA shows evidence of urinary tract infection. Rocephin given here in the ER along with fluids. Patient will be discharged on Macrobid. Educated patient to return to the hospital it as needed. It to follow up with PCP in 1-2 days. Differential diagnosis: Urinary tract infection, pyelonephritis, Rationale: Tests considered and ordered secondary to shared decision making in clude: Previous outside records reviewed: Old ER visits. Risk of complication and/or morbidity or mortality of patient management: None Medications-Per medication reconciliation Need for hospitalization: Patient does not meet criteria for hospitalization. Need for emergency major/minor surgery: No There are no social concerns with this patient. Prescription drug management Prescriptions will include symptomatic care Patient's prior external medical records from other ER visits were reviewed by me as indicated. Prior testing and results from previous visits were reviewed. Prior tests were taken into account with medical decision making and resource utilization, independent historian/historians were used to obtain complete medical history. I independently interpreted the test that were performed, results were reviewed by me and considered findings on radiology if ordered. Medical management and examination interpretation discussions were had by me with other qualified healthcare professionals as indicated for the patient's care. DX & DISP Disposition: Discharge Departure Impression: Primary Impression: UTI (urinary tract infection) Condition: Stable Scripts Phenazopyridine HCl (Pyridium) 200 Mg Tablet 200 MG PO TID for painful urination, #10 TAB 0 Refills Prov: VINNY RASHEED 07/05/25 Nitrofurantoin/Nitrofuran Mac (Macrobid) 100 Mg Cap 1 CAP PO BID for 7 Days, #14 CAP 0 Refills Prov: VINNY RASHEED 07/05/25 Additional Instructions: The urinary tract infection. He received IV antibiotics in the emergency room he will be discharged with the antibiotics. You are to take the antibiotics that I will give you here and continue the clindamycin in the urine taking for your facial cellulitis. In addition you get prescribe Pyridium which will help for your painful urination however does turn your urine RN so do not be alarmed. If you develop any fever, nausea or vomiting or back pain return to the hospital. Referrals: MARGIE CONLEY MD (PCP) Time of Disposition: 20:46 I have reviewed the case, and I agree with, Diagnosis and Plan VINNY RASHEED Jul 05, 2025 19:28
[2025-07-05 19:41] LABS: IMMATURE GRANULOCYTE ABSOLUTE 0.01 K/uL (0-1); NUCLEATED RED BLOOD CELLS 0.0 % (0.0-0.19); PLATELET COUNT (AUTO) 257 K/uL (130-400); RED BLOOD CELL COUNT(AUTO) 4.49 MIL/uL (4.00-5.50); RED CELL DISTRIBUTION WIDTH 13.4 % (11.0-15.5); WHITE BLOOD COUNT (AUTO) 3.9 K/uL (4.8-10.8)
[2025-07-05 19:44] LABS: APPEARANCE,URINE CLEAR (CLEAR); GLUCOSE, URINE (UA) 250 mg/dL (NEGATIVE); LEUKOCYTE ESTERASE ,URINE NEGATIVE Leu/uL (NEGATIVE); NITRATE,URINE NEGATIVE (NEGATIVE); OCCULT BLOOD,URINE SMALL (NEGATIVE)
[2025-07-05 19:54] LABS: ADD UA MICROSCOPIC YES
[2025-07-05 19:55] LABS: CREATININE 0.8 mg/dL (0.5-1.0); GLOMERULAR FILTR. RATE CALC 87.0 mL/min (>90); GLUCOSE,RANDOM 241.0 mg/dL (70-105); SODIUM SERUM 139.0 mmol/L (136-145); UREA NITROGEN, BLOOD 18.0 mg/dL (7-18)
[2025-07-05 20:01] LABS: SQUAMOUS EPITHELIAL CELL,UR Rare /HPF (0-2)
[2025-07-05] MEDS ORDERED: MACR100 PO (20:47)
[2025-07-05] MEDS ORDERED: PHEN-776 PO (20:47)
--- NOTE | 2025-07-05 20:50 | NUR ---
REC PT AT THIS TIME
[2025-07-05] MEDS: PHENAZOpyridine HCL 200 MG TAB 200 MG TABLET PO ONE (21:02)
[2025-07-05] MEDS: 0.9%NACL 1000ML 1,000 ML IV SCH (21:05)
[2025-07-05 21:19] VITALS: BP 182/97; PULSE 74; RESP 16; TEMP 98.3; O2SAT 97
== END 2025-07-05 21:46 | disposition home or self-care (01) ==
LOC: EDH 19:08
DX: N39.0 Urinary tract infection, site not specified (principal); E11.9 Type 2 diabetes mellitus without complications; I10 Essential (primary) hypertension; Z79.52 Long term (current) use of systemic steroids; Z79.82 Long term (current) use of aspirin; Z79.84 Long term (current) use of oral hypoglycemic drugs; Z79.899 Other long term (current) drug therapy; Z88.8 Allergy status to other drugs, medicaments and biological substances
CPT/HCPCS: 99284; 96374; 96375; 80048; 85025; 87086; 81001; 36415; J1885; J7030; J0696